=== PATIENT | male | born 1970 ===

== ENCOUNTER 2016-05-18 22:35 | Outpatient (CLI) | payer OTHER ==
[2016-05-18 22:52] LABS: BASOPHILS % 0.9 (0.0-1.5); EOSINOPHILS % 3.4 % (0.0-6.8); MEAN CORPUSCULAR HEMOGLOBIN 31.7 pg (28.0-34.0); MONOCYTES % 4.4 % (0.0-11.0); NEUTROPHILS # 3.3 # k/uL (1.4-7.7)
== END 2016-05-18 22:36 ==
LOC: LAB 22:35
PROVIDERS: ATTEND General Practice
DX: Z02.9 Encounter for administrative examinations, unspecified (principal)
CPT/HCPCS: 85025